=== PATIENT | female | born 1980 | race Two or more races ===

== ENCOUNTER 2018-05-13 04:14 | Emergency (ER) | payer SELFPAY ==
[~2018-05-13] VITALS: Ht 170.2 cm; Wt 86.0 kg
[2018-05-13] MEDS ORDERED: SODIUM CHLORIDE 0.9% 1,000 ML IV ONE ×3 (05:30→09:45)
[2018-05-13 05:57] LABS: BASOPHILS % 0.4 % (0.0-2.0); EOSINOPHILS % 0.7 % (0.0-5.0); HEMATOCRIT. 35.2 % (36.0-48.0); HEMOGLOBIN. 11.6 g/dL (12.0-16.0); LYMPHOCYTES % 13.8 % (20.0-50.0); MEAN CORPUSCULAR HEMOGLOBIN 26.7 pg (28.0-32.0); MEAN CORPUSCULAR VOLUME 81.1 fL (81.0-99.0); MONOCYTES % 5.3 % (2.0-8.0); NEUTROPHILS % 79.8 % (40.0-76.0); PLATELET 269 x1000/uL (130-400); RED BLOOD CELL COUNT 4.35 mill/uL (4.2-5.4); RED CELL DISTRIBUTION WIDTH 14.9 % (11.6-14.6)
[2018-05-13 06:03] LABS: CHLORIDE 109 mEq/L (98-107)
[2018-05-13 06:14] LABS: B-HCG QUANTITATIVE 126 mIU/mL (<3)
[2018-05-13 11:23] VITALS: BP 140/84
== END 2018-05-13 11:31 | disposition home or self-care (01) ==
LOC: ER 04:14
DX: O03.4 Incomplete spontaneous abortion without complication (principal); O26.891 Other specified pregnancy related conditions, first trimester; E87.6 Hypokalemia; O16.1 Unspecified maternal hypertension, first trimester; O99.011 Anemia complicating pregnancy, first trimester; R00.0 Tachycardia, unspecified; Z3A.00 Weeks of gestation of pregnancy not specified
CPT/HCPCS: 36415; 76801; 76817; 80053; 84702; 85025; 86850; 86900; 86901; 88305; 99285; J7030